=== PATIENT | female | born 1980 | race Two or more races ===

== ENCOUNTER 2016-11-08 19:56 | Emergency (ER) | payer SELFPAY ==
[~2016-11-08] VITALS: Ht 167.6 cm; Wt 78.0 kg
[2016-11-08] MEDS ORDERED: KETOROLAC TROMETHAMINE 60 MG INJ IM ONE ×3 (20:35→21:23)
[2016-11-08] MEDS ORDERED: MORPHINE SULFATE 4 MG/1 ML DISP.SYRIN ONE ×2 (20:35→23:16)
[2016-11-08] MEDS ORDERED: ONDANSETRON ODT 4 MG TAB.RAPDIS ONE ×2 (20:35→23:16)
[2016-11-08 21:09] LABS: *URINE HCG, QUAL NEGATIVE (NEGATIVE)
[2016-11-08] MEDS ORDERED: MORPHINE SULFATE 4 MG/1 ML DISP.SYRIN IM ONE (23:00)
[2016-11-08] MEDS ORDERED: ONDANSETRON ODT 4 MG TAB.RAPDIS SL ONE (23:00)
[2016-11-08 23:21] VITALS: BP 122/86
== END 2016-11-08 23:23 | disposition home or self-care (01) ==
LOC: ER 19:56
DX: M79.672 Pain in left foot (principal); M25.552 Pain in left hip; M54.40 Lumbago with sciatica, unspecified side
CPT/HCPCS: 72100; 73502; 73551; 73630; 84703; A4663; J1885; J2270; Q0162